=== PATIENT | female | born 1935 | race Caucasian/White ===

== ENCOUNTER 2017-08-25 13:58 | Outpatient (CLI) | payer MEDICARE | END 2017-08-25 13:59 | disposition home or self-care (01) | LOC: BICMAMMO 13:58 | PROVIDERS: ATTEND Family Medicine | DX: Z12.31 Encounter for screening mammogram for malignant neoplasm of breast (principal); I48.91 Unspecified atrial fibrillation | CPT/HCPCS: 77063; 77067 ==

== ENCOUNTER 2017-10-28 06:36 | Day surgery (SDC) | payer MEDICARE ==
[2017-10-27 12:20] VITALS: BMI 18.0
[2017-10-28 07:47] VITALS: BP 117/57; TEMP 97.2
[2017-10-28 08:37] LABS: INR-International Normal Ratio 1.1; Prothrombin Time 14.1 SEC (12.0-14.7)
[2017-10-28] MEDS ORDERED: Iopamidol-M 300 61% 15 ML VIAL ONE (09:51)
--- NOTE | 2017-10-28 10:22 | RAD ---
THREE VIEWS LUMBOSACRAL SPINE: History: Spondylolysis and myelopathy. FINDINGS: Lateral views of the lumbosacral spine were performed in neutral, flexion, and extension. There is re trolisthesis of the L4 vertebral body in relation to the L3 and L5. This retrolisthesis is approximat marciano 8 mm. There is intervertebral disc space narrowing throughout the lumbosacral spine, greatest at L4-5. Moderate osteophytes are seen throughout the lumbar spine. Alignment of the spine is unchanged with flexion and extension. IMPRESSION: Degenerative changes of the lumbar spine with unchanged alignment with bending. POS: [facility]
--- NOTE | 2017-10-28 11:09 | RAD ---
CERVICAL SPINE MYELOGRAM: LUMBAR SPINE MYELOGRAM: 10/28/2017 HISTORY: Neck pain and low back pain. COMPARISON: None. FINDINGS: Informed consent obtained prior to the procedure. Senior Master Scheduler frontal radiograph of the lumbar spine demon strates multilevel disk space narrowing, most prominent at L4-L5 and at L5-S1, with lateral osteophyt e formation, most prominent at L4-L5, left greater than right. The lumbar pedicles appear intact on frontal imaging. Senior Master Scheduler imaging of the cervical spine demonstrates prominent multilevel bilateral fac et and uncovertebral osteophyte formation, right greater than left, most significant at C4-C5, C5-C6, and C6-C7. Lateral logistics program manager image of the cervical spine demonstrates retrolisthesis of C4 on C5, measu ring 3 mm, and of C5 on C6, measuring approximately 2 mm. There is disk space narrowing at C4-C5, C5 -C6, and C6-C7, with anterior osteophyte formation. The patient was then placed in the oblique prone position on the fluoroscopy table, and the skin over lying the lumbar spine was prepped and draped in the normal sterile fashion. The skin was anesthetiz ed at the L3 level. With intermittent fluoroscopic guidance, a 22 gauge spinal needle was advanced i nto the thecal sac, and removal of the stylet yielded clear CSF. Approximately 12 mL of Isovue-300 w as injected into the thecal sac, outlining the nerve roots of the cauda equina. The patient was tilt ed down, to extend some of the contrast media into the cervical region as well. The patient tolerated the procedure well and was sent to the CT scanner for a CT myelogram of the cer vical and lumbar spine. IMPRESSION: Multilevel lumbar spine and cervical spine degenerative change. Successful cervical and lumbar spine myelogram. POS: [facility]
--- NOTE | 2017-10-28 11:34 | CT ---
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 COMPARISON: None. TECHNIQUE: Serial axial CT imaging at 2.5 mm intervals obtained through the lumbar spine, following the intrathe gus administration of Isovue-300. Coronal and sagittal reformatted imaging obtained. FINDINGS: The conus medullaris terminates at the L1 level. There is anterolisthesis at L2-L3 measuring 3 mm an d at L3-L4 measuring 7 mm. The visualized lung parenchyma appears grossly unremarkable. Probable 7 mm cyst noted in the right l obe of the liver. Small cysts noted in the upper pole of the right kidney. Scattered atherosclerotic calcification of the abdominal aorta and its branches noted. There is degenerative change involving the bilateral sacroiliac joints. T12-L1: There is mild bilateral facet hypertrophy. There is no significant central canal or neural foraminal narrowing. L1-L2: There is moderate bilateral facet hypertrophy, right greater than left. There is mild disk b ulge, with no significant central canal or neural foraminal stenosis. L2-L3: Moderate bilateral facet hypertrophy. Disk space narrowing, vacuum disk formation, and anter ior osteophyte formation noted, as well as disk bulge. Superimposed right paracentral/right foramina l disk protrusion noted. There is a mild to moderate degree of right lateral recess stenosis/right n eural foraminal stenosis. No significant left neural foraminal stenosis. L3-L4: Disk space narrowing, vacuum disk formation, and disk bulge present. Prominent bilateral fac et hypertrophy. Mild/moderate central canal stenosis. Moderate bilateral neural foraminal stenosis. L4-L5: There is disk space narrowing, anterior osteophyte formation, and vacuum disk formation. The re is mild disk bulge with no central canal stenosis. Mild bilateral neural foraminal stenosis. L5-S1: There is disk space narrowing and vacuum disk formation. Mild bilateral facet hypertrophy. No significant central canal stenosis. Mild bilateral neural foraminal stenosis, right greater than left. No worrisome lytic or blastic bone lesion. No acute osseous abnormality. IMPRESSION: Multilevel degenerative change noted within the lumbar spine, as described above. POS: [facility]
--- NOTE | 2017-10-28 12:07 | CT ---
CT MYELOGRAM OF CERVICAL SPINE: DATE: 10/28/17. COMPARISON: None. HISTORY: Neck pain with upper extremity radiculopathy. TECHNIQUE: Serial axial CT imaging at 2.5 mm intervals through the cervical spine with intrathecal contrast medi a. Coronal and sagittal reformatted imaging obtained. FINDINGS: The imaged lung apices are unremarkable. There is moderate degenerative change at the atlantoaxial interspace. There is straightening of the normal cervical lordosis. There is minimal anterolisthesis at C3-4 and minimal retrolisthesis at C4- 5. C2-3: There is disk space narrowing and bilateral facet hypertrophy with no significant central chelo l or neural foraminal stenosis. C3-4: There is disk space narrowing . The central canal stenosis. There is facet and uncovertebral osteophyte formation on the right with mild to moderate right neural foraminal stenosis. No left ne ural foraminal stenosis. C4-5: There is disk space narrowing and posterior disk-osteophyte complex. There is anterior osteop hyte formation as well. There is effacement of the ventral thecal sac with mild central canal stenos is. There is bilateral facet and uncovertebral osteophyte formation, left greater than right, with m oderate bilateral neural foraminal stenosis, left greater than right. C5-6: Disk space narrowing, posterior disk-osteophyte complex, and anterior osteophyte formation not ed. There is bilateral facet and uncovertebral osteophyte formation, right greater than left. There is a posterior osteophyte in the right paracentral region. There is moderate left and moderate/jordana re right neural foraminal stenosis. C6-7: There is disk space narrowing with degenerative end plate change and posterior-disk osteophyte complex. Bilateral facet and uncovertebral osteophyte formation with moderate/severe bilateral neur al foraminal stenosis and mild central canal stenosis. C7-T1: Mild facet hypertrophy on the right with no significant central canal or neural foraminal amparo nosis. No acute osseous abnormality. No discrete lytic or blastic bone lesions. IMPRESSION: Prominent multilevel cervical spine degenerative change as described above. POS: [facility]
== END 2017-10-28 11:00 | disposition home or self-care (01) ==
LOC: RAD 06:36
PROVIDERS: ATTEND Neurological Surgery
PROC: B02BY0Z Computerized Tomography (CT Scan) of Spinal Cord using Other Contrast, Unenhanced and Enhanced (ICD-10-PCS; principal; 2017-10-28)
DX: M47.12 Other spondylosis with myelopathy, cervical region (principal); M47.16 Other spondylosis with myelopathy, lumbar region; K21.9 Gastro-esophageal reflux disease without esophagitis; M19.90 Unspecified osteoarthritis, unspecified site; E07.9 Disorder of thyroid, unspecified; F41.9 Anxiety disorder, unspecified; F32.9 Major depressive disorder, single episode, unspecified; I25.10 Atherosclerotic heart disease of native coronary artery without angina pectoris; I48.91 Unspecified atrial fibrillation; Z79.82 Long term (current) use of aspirin; Z79.899 Other long term (current) drug therapy; Z88.2 Allergy status to sulfonamides; Z88.1 Allergy status to other antibiotic agents; Z88.8 Allergy status to other drugs, medicaments and biological substances; Z79.01 Long term (current) use of anticoagulants
CPT/HCPCS: 62305; 72100; 72126; 72132; 85610

== ENCOUNTER 2021-03-21 09:44 | Outpatient (CLI) | payer MEDICARE | END 2021-03-21 09:45 | disposition home or self-care (01) | LOC: NM 09:44 | PROVIDERS: ATTEND Psychiatry & Neurology Neurology | DX: G25.0 Essential tremor (principal); R26.9 Unspecified abnormalities of gait and mobility | CPT/HCPCS: 78803; A9584 ==

== ENCOUNTER 2022-08-01 15:44 | Inpatient (IN) | payer MEDICARE ==
[2022-08-01 16:24] LABS: #Lymphocytes 1.7 thou/uL (1.20-3.40); #Monocytes 0.5 thou/uL (0.11-0.59); #Neutrophils 5.7 thou/uL (1.40-6.50); %Basophils 0.3 % (0.0-1.0); %Lymphocytes 21.6 % (21.0-51.0); %Monocytes 5.9 % (0.0-10.0); %Neutrophils 72.1 % (42.0-75.0); Hemoglobin 15.6 g/dL (12.0-16.0); Mean Corpuscular HGB CONC 32.9 g/dL (32.0-36.0); Mean Corpuscular Volume 97.4 fl (78.0-98.0); Mean Platelet Volume 8.1 fL (7.4-10.4); Platelet Count 143 10x3/uL (130-400); RBC Distribution Width 13.1 % (11.5-14.5); Red Blood Cell (RBC) Count 4.88 mill/uL (4.20-5.40)
[2022-08-01] MEDS ORDERED: Cefepime 2 GM VIAL ONE (16:28)
[2022-08-01 16:45] LABS: ALT (SGPT) 17 U/L (8-55); AST (SGOT) 56 U/L (5-34); Albumin 3.9 g/dL (3.4-4.8); Alkaline Phosphatase 66 U/L (40-110); Anion Gap 15 mmol/L (10-20); BUN (Urea Nitrogen) 25 mg/dL (9.8-20.1); Bilirubin, Total 0.8 mg/dL (0.2-1.2); Calc. Creatinine Clearance 0 mL/min (70-130); Calcium 8.8 mg/dL (7.8-10.44); Carbon Dioxide 27 mmol/L (23-31); Chloride 101 mmol/L (98-107); Estimated GFR 66; Glucose 94 mg/dL (83-110); Potassium 4.2 mmol/L (3.5-5.1); Protein, Total 7.9 g/dL (5.8-8.1); Sodium 139 mmol/L (136-145)
[2022-08-01 16:46] LABS: Bacteria/HPF 4+ HPF (None Seen); Bilirubin Negative (Negative); Blood, Urine 3+ (Negative); Clarity Turbid (Clear); Glucose, Urine (Dipstick) Normal (Negative); Ketone, Urine Negative (Negative); Leukocyte 500 Leu/uL (Negative); Nitrite 1+ (Negative); Protein, Urine (Dipstick) 200 mg/dL (Neg-Trace); RBC/HPF 0-3 HPF (0-3); Specific Gravity, Urine 1.031 (1.002-1.036); Squamous Epithelial None Seen HPF (0-3); Urobilinogen Normal mg/dL (Less than 2); WBC/HPF Greater than 50 HPF (0-3)
[2022-08-01 17:02] LABS: CK (CPK) 1716 U/L (29-168); Lipase 42 U/L (8-78); Magnesium 2.2 mg/dL (1.6-2.6)
[2022-08-01] MEDS ORDERED: Acetaminophen 325 MG Suppository ONE (17:06)
[2022-08-01] MEDS ORDERED: Azithromycin 500 MG VIAL ONE (17:29)
[2022-08-01 19:24] LABS: Lactic Acid 2.2 mmol/L (0.5-2.2)
[2022-08-01] MEDS ORDERED: Ondansetron PF 4 MG/2 ML Vial IVP PRN (19:36)
[2022-08-01] MEDS ORDERED: cefTRIAXone\\ROCEPHIN 1 GM in Sodium Chloride 0.9% 100 ML IVPB SCH (19:45)
[2022-08-01] MEDS ORDERED: Sodium Chloride 0.9% 1,000 ML IV SCH (19:45)
[2022-08-01] MEDS ORDERED: Heparin 5,000 UNITS/ML VIAL SC SCH (21:00)
[2022-08-01 21:05] VITALS: BMI 18.3
[2022-08-01] MEDS: Famotidine/PF 20 mg/2ml Vial SLOW IVP SCH (21:20)
[2022-08-01] MEDS: Dextrose 5%-Lactated Ringers 1,000 ML IV SCH (21:20)
[2022-08-02] MEDS: Cefepime 1 GM in Sodium Chloride 0.9% 100 ML IVPB SCH ×2 (05:52→17:28)
[2022-08-02] MEDS ORDERED: Levothyroxine Sodium 200 MCG VIAL IVP SCH (06:00)
[2022-08-02 07:33] LABS: #Lymphocytes 1.2 thou/uL (1.20-3.40); #Monocytes 0.4 thou/uL (0.11-0.59); #Neutrophils 3.6 thou/uL (1.40-6.50); %Basophils 0.2 % (0.0-1.0); %Eosinophils 0.2 % (0.0-10.0); %Lymphocytes 23.3 % (21.0-51.0); %Monocytes 8.1 % (0.0-10.0); %Neutrophils 68.2 % (42.0-75.0); Hemoglobin 13.8 g/dL (12.0-16.0); Mean Corpuscular HGB CONC 32.8 g/dL (32.0-36.0); Mean Corpuscular Hemoglobin 32.6 pg (27.0-31.0); Mean Corpuscular Volume 99.2 fl (78.0-98.0); Mean Platelet Volume 8.3 fL (7.4-10.4); Platelet Count 133 10x3/uL (130-400); RBC Distribution Width 12.9 % (11.5-14.5); Red Blood Cell (RBC) Count 4.25 mill/uL (4.20-5.40); White Blood Cell (WBC) Count 5.3 10x3/uL (4.8-10.8)
[2022-08-02 07:42] LABS: Digoxin 0.62 ng/mL (0.8-2.0)
[2022-08-02 07:48] LABS: ALT (SGPT) 14 U/L (8-55); AST (SGOT) 55 U/L (5-34); Alkaline Phosphatase 47 U/L (40-110); Anion Gap 9 mmol/L (10-20); BUN (Urea Nitrogen) 18 mg/dL (9.8-20.1); Bilirubin, Total 0.7 mg/dL (0.2-1.2); Calc. Creatinine Clearance 47 mL/min (70-130); Calcium 7.8 mg/dL (7.8-10.44); Carbon Dioxide 28 mmol/L (23-31); Chloride 108 mmol/L (98-107); Estimated GFR 84; Globulin 2.7 g/dL (2.4-3.5); Glucose 88 mg/dL (83-110); Protein, Total 5.7 g/dL (5.8-8.1); Sodium 141 mmol/L (136-145)
[2022-08-02] MEDS: Digoxin 0.125 MG TAB PO SCH (08:33)
[2022-08-02] MEDS: Famotidine/PF 20 mg/2ml Vial SLOW IVP SCH (08:37)
[2022-08-02] MEDS: Dextrose 5%-Lactated Ringers 1,000 ML IV SCH (08:38)
[2022-08-02] MEDS: metroNIDAZOLE 500 MG in Premix Bag 1 BAG IVPB SCH ×2 (11:06→21:44)
[2022-08-02] MEDS: Rivaroxaban 15 MG TAB PO SCH (17:28)
[2022-08-02] MEDS ORDERED: Azithromycin 500 MG in Sodium Chloride 0.9% 250 ML 250 ML IVPB SCH (18:00)
[2022-08-02] MEDS: Lorazepam 1 MG TAB PO SCH (21:44)
[2022-08-02] MEDS: Gabapentin 300 MG CAP PO SCH (21:44)
[2022-08-02] MEDS: Donepezil HCl 5 MG TAB PO SCH (21:44)
[2022-08-02] MEDS: Ezetimibe 10 MG TAB PO SCH (21:45)
[2022-08-03] MEDS: Dextrose 5%-Lactated Ringers 1,000 ML IV SCH ×2 (02:59→12:07)
[2022-08-03] MEDS: metroNIDAZOLE 500 MG in Premix Bag 1 BAG IVPB SCH ×3 (02:59→21:39)
[2022-08-03] MEDS: Levothyroxine Sodium 112 MCG TAB PO SCH (05:45)
[2022-08-03] MEDS: Cefepime 1 GM in Sodium Chloride 0.9% 100 ML IVPB SCH ×2 (05:45→17:36)
[2022-08-03 06:40] LABS: #Lymphocytes 1.4 thou/uL (1.20-3.40); #Monocytes 0.4 thou/uL (0.11-0.59); #Neutrophils 1.9 thou/uL (1.40-6.50); %Basophils 0.3 % (0.0-1.0); %Eosinophils 0.1 % (0.0-10.0); %Lymphocytes 38.2 % (21.0-51.0); %Monocytes 9.7 % (0.0-10.0); %Neutrophils 51.8 % (42.0-75.0); Hemoglobin 12.6 g/dL (12.0-16.0); Mean Corpuscular Hemoglobin 30.9 pg (27.0-31.0); Mean Corpuscular Volume 99.7 fl (78.0-98.0); Platelet Count 135 10x3/uL (130-400); RBC Distribution Width 12.9 % (11.5-14.5); Red Blood Cell (RBC) Count 4.07 mill/uL (4.20-5.40); White Blood Cell (WBC) Count 3.6 10x3/uL (4.8-10.8)
[2022-08-03 06:47] LABS: Anion Gap 10 mmol/L (10-20); BUN (Urea Nitrogen) 15 mg/dL (9.8-20.1); Calc. Creatinine Clearance 47 mL/min (70-130); Calcium 7.6 mg/dL (7.8-10.44); Carbon Dioxide 26 mmol/L (23-31); Chloride 109 mmol/L (98-107); Estimated GFR 84; Glucose 91 mg/dL (83-110); Potassium 3.8 mmol/L (3.5-5.1); Sodium 141 mmol/L (136-145)
[2022-08-03 06:59] LABS: Free T4 (Free Thyroxine) 0.96 ng/dL (0.70-1.48)
[2022-08-03] MEDS: Aspirin 81 mg Enteric Coated Tablet PO SCH (08:59)
[2022-08-03] MEDS: Lorazepam 1 MG TAB PO SCH ×2 (09:00→21:39)
[2022-08-03] MEDS: Gabapentin 300 MG CAP PO SCH ×3 (09:00→21:39)
[2022-08-03] MEDS: Digoxin 0.125 MG TAB PO SCH (09:01)
[2022-08-03] MEDS: Famotidine/PF 20 mg/2ml Vial SLOW IVP SCH (09:02)
[2022-08-03] MEDS: Rivaroxaban 15 MG TAB PO SCH (17:36)
[2022-08-03] MEDS: Donepezil HCl 5 MG TAB PO SCH (21:39)
[2022-08-03] MEDS: Ezetimibe 10 MG TAB PO SCH (21:39)
[2022-08-04] MEDS: Cefepime 1 GM in Sodium Chloride 0.9% 100 ML IVPB SCH (04:14)
[2022-08-04] MEDS: Dextrose 5%-Lactated Ringers 1,000 ML IV SCH (04:14)
[2022-08-04] MEDS: metroNIDAZOLE 500 MG in Premix Bag 1 BAG IVPB SCH ×3 (04:14→21:10)
[2022-08-04] MEDS: Levothyroxine Sodium 112 MCG TAB PO SCH (05:40)
[2022-08-04] MEDS: Gabapentin 300 MG CAP PO SCH ×3 (09:12→21:10)
[2022-08-04] MEDS: Digoxin 0.125 MG TAB PO SCH (09:12)
[2022-08-04] MEDS: Lorazepam 1 MG TAB PO SCH ×2 (09:13→21:10)
[2022-08-04] MEDS: Famotidine/PF 20 mg/2ml Vial SLOW IVP SCH (09:13)
[2022-08-04] MEDS: Aspirin 81 mg Enteric Coated Tablet PO SCH (09:13)
[2022-08-04] MEDS ORDERED: Furosemide 40 MG/4 ML VIAL SLOW IVP SCH (11:04)
[2022-08-04] MEDS ORDERED: Furosemide 20 MG/2 ML VIAL SLOW IVP SCH (16:00)
[2022-08-04] MEDS: Rivaroxaban 15 MG TAB PO SCH (16:39)
[2022-08-04] MEDS: Ezetimibe 10 MG TAB PO SCH (21:10)
[2022-08-04] MEDS: Donepezil HCl 5 MG TAB PO SCH (21:10)
[2022-08-05] MEDS: Levothyroxine Sodium 112 MCG TAB PO SCH (05:32)
[2022-08-05] MEDS: metroNIDAZOLE 500 MG in Premix Bag 1 BAG IVPB SCH ×2 (05:32→14:02)
[2022-08-05 09:09] VITALS: TEMP 98.4
[2022-08-05] MEDS: Digoxin 0.125 MG TAB PO SCH (09:39)
[2022-08-05] MEDS: Famotidine/PF 20 mg/2ml Vial SLOW IVP SCH (09:39)
[2022-08-05] MEDS: Gabapentin 300 MG CAP PO SCH ×2 (09:39→15:27)
[2022-08-05] MEDS: Lorazepam 1 MG TAB PO SCH (09:40)
[2022-08-05] MEDS: Aspirin 81 mg Enteric Coated Tablet PO SCH (09:40)
[2022-08-05 14:52] VITALS: BP 108/54
== END 2022-08-05 15:54 | disposition swing bed (61) | DRG 871 ==
LOC: ERS 15:44 → T4-A 18:38
PROVIDERS: ADMIT Internal Medicine Nephrology; ATTEND Family Medicine
DX: A41.9 Sepsis, unspecified organism (principal); G93.41 Metabolic encephalopathy; J69.0 Pneumonitis due to inhalation of food and vomit; N39.0 Urinary tract infection, site not specified; Z51.5 Encounter for palliative care; Z66 Do not resuscitate; I48.91 Unspecified atrial fibrillation; G30.9 Alzheimer's disease, unspecified; F02.80 Dementia in other diseases classified elsewhere, unspecified severity, without behavioral disturbance, psychotic disturbance, mood disturbance, and anxiety; K21.9 Gastro-esophageal reflux disease without esophagitis; G62.9 Polyneuropathy, unspecified; H90.5 Unspecified sensorineural hearing loss; G25.0 Essential tremor; E89.0 Postprocedural hypothyroidism; R53.81 Other malaise; E78.00 Pure hypercholesterolemia, unspecified; I25.10 Atherosclerotic heart disease of native coronary artery without angina pectoris; Z98.51 Tubal ligation status; Z95.0 Presence of cardiac pacemaker; Z88.8 Allergy status to other drugs, medicaments and biological substances; Z88.2 Allergy status to sulfonamides; Z88.1 Allergy status to other antibiotic agents; Z91.018 Allergy to other foods; Z79.82 Long term (current) use of aspirin; Z79.899 Other long term (current) drug therapy; Z79.890 Hormone replacement therapy; Z79.01 Long term (current) use of anticoagulants
CPT/HCPCS: 36415; 51701; 70450; 71045; 80048; 80053; 80162; 81003; 81015; 82550; 83605; 83690; 83735; 84439; 84443; 84481; 85025; 87040; 87077; 87086; 87186; 93005; 96365; 96375; J0456; J0692; J1940; J3490; S0028